=== PATIENT | female | born 1970 | race African-American/Black ===

== ENCOUNTER 2018-06-16 16:21 | Emergency (ER) | payer BC, OTHER ==
[~2018-06-16] VITALS: Ht 165.1 cm; Wt 85.0 kg
[2018-06-16] MEDS ORDERED: FAMOTIDINE 20MG/2ML VIAL IV ONE (16:45)
[2018-06-16] MEDS ORDERED: DEXAMETHASONE 10 MG/ML VIAL IV ONE (16:45)
[2018-06-16 17:25] VITALS: BP 142/70
== END 2018-06-16 18:09 | disposition home or self-care (01) ==
LOC: ER 16:21
DX: T63.441A Toxic effect of venom of bees, accidental (unintentional), initial encounter (principal); R22.2 Localized swelling, mass and lump, trunk; I10 Essential (primary) hypertension; J45.909 Unspecified asthma, uncomplicated; I25.2 Old myocardial infarction; Y92.488 Other paved roadways as the place of occurrence of the external cause
CPT/HCPCS: 96374; 99283; J1100; J3490